=== PATIENT | female | born 1950 | race Caucasian/White ===

== ENCOUNTER 2021-08-31 12:40 | Observation (INO) | payer MEDICARE ==
[~2021-08-31] VITALS: Ht 165.1 cm; Wt 49.0 kg
[2021-08-31 14:17] LABS: HEMOGLOBIN 12.4 gm/dl (12.3-15.3); RED BLOOD COUNT 3.86 M/UL (4.00-5.10); WHITE BLOOD COUNT 4.5 K/UL (4.5-11.0)
[2021-08-31 14:38] LABS: BUN/CREATININE RATIO 17 (0-10)
[2021-08-31] MEDS ORDERED: PREVACID30 MG PO (16:04)
[2021-08-31] MEDS ORDERED: METOPROLOL TART25 MG PO (16:05)
[2021-08-31] MEDS ORDERED: DULOXETINE HCL30 MG PO (16:06)
[2021-08-31] MEDS ORDERED: ACYCLOVIR400 MG PO (16:06)
[2021-08-31] MEDS ORDERED: BUPROPION HCL100 M1 PO (16:06)
[2021-08-31] MEDS ORDERED: TRAZODONE HCL50 MG PO (16:07)
[2021-08-31] MEDS ORDERED: CRESTOR5 MG PO (16:07)
[2021-08-31] MEDS ORDERED: EUTHYROX75 MCG PO (16:08)
[2021-08-31] MEDS ORDERED: PROTONIX40 MG PO (16:08)
[2021-08-31] MEDS ORDERED: LINZESS72 MCG PO (16:09)
[2021-09-01 08:33] LABS: RED BLOOD COUNT 3.75 M/UL (4.00-5.10)
[2021-09-01 08:38] LABS: WHITE BLOOD COUNT 3.3 K/UL (4.5-11.0)
[2021-09-01 08:46] LABS: BUN/CREATININE RATIO 14 (0-10)
[2021-09-02] MEDS ORDERED: LOPRESSOR 25 MG25 MG PO (09:26)
== END 2021-09-02 14:50 | disposition home or self-care (01) ==
LOC: ER1 12:40 → MED SURG 4 15:00 → CDU 15:00 → MED SURG 4 15:00 → CDU 16:10 → MED SURG 4 16:56
PROVIDERS: Physician Assistant Medical; Preventive Medicine Occupational Medicine; ADMIT Internal Medicine
DX: G45.9 Transient cerebral ischemic attack, unspecified (principal); E03.9 Hypothyroidism, unspecified; E78.5 Hyperlipidemia, unspecified; I48.91 Unspecified atrial fibrillation; K27.9 Peptic ulcer, site unspecified, unspecified as acute or chronic, without hemorrhage or perforation; R00.1 Bradycardia, unspecified; I65.23 Occlusion and stenosis of bilateral carotid arteries; I49.1 Atrial premature depolarization; Z20.822 Contact with and (suspected) exposure to COVID-19; Z88.2 Allergy status to sulfonamides; Z95.818 Presence of other cardiac implants and grafts
CPT/HCPCS: 36415; 70450; 70544; 70551; 71045; 80048; 80053; 81001; 82550; 82553; 82962; 83690; 83735; 83874; 83880; 84439; 84443; 84484; 85018; 85025; 85027; 85610; 85652; 85730; 86140; 87086; 93005; 97161; 99285; G0378; J7030; U0002